=== PATIENT | male | born 1995 | race Caucasian/White ===

== ENCOUNTER 2017-09-15 21:14 | Emergency (ER) | payer OTHER, BC ==
[2017-09-15] MEDS: Albuterol-Ipratrop 3 mg / 0.5 (3 ml) UD IH SCH ×3 (21:25→21:55)
--- NOTE | 2017-09-15 21:28 | ED PDOC ---
Arrival/HPI - General Time Seen by Provider: 09/15/17 21:24 Historian: Patient - History of Present Illness Narrative History of Present Illness (Text): 09/15/17 21:26 21 y/o male, pmh including asthma, nkda, c/o coughing x 2 weeks. Pt. stated that he has been coughing for the past 2 weeks with nasal congestion, started wheezing for the past 3 days, no night sweat, no rash, no numbness or tingling , no pleuritic pain, no other medical or psychological complaints. Past Medical History - Provider Review Nursing Documentation Reviewed: Yes - Tetanus Immunization Tetanus Immunization: Unknown - Past Medical History Past Medical History: No Previous - Pulmonary Hx Asthma: Yes - Psychiatric Hx Substance Use: No - Past Surgical History Past Surgical History: No Previous - Suicidal Assessment Feels Threatened In Home Enviroment: No Family/Social History - Physician Review Nursing Documentation Reviewed: Yes Family/Social History: Unknown Family HX Smoking Status: n Hx Alcohol Use: No Hx Substance Use: No Hx Substance Use Treatment: No Allergies/Home Meds Allergies/Adverse Reactions: Allergies apples Allergy (Uncoded 09/15/17 21:17) RASH Review of Systems - Review of Systems Constitutional: absent: Fatigue, Fevers Eyes: absent: Vision Changes ENT: Rhinorrhea. absent: Hearing Changes Respiratory: Cough, Sputum, Wheezing. absent: SOB Cardiovascular: absent: Chest Pain Gastrointestinal: absent: Abdominal Pain, Nausea, Vomiting Musculoskeletal: absent: Arthralgias Skin: absent: Rash, Pruritis Neurological: absent: Headache Psychiatric: absent: Anxiety, Depression Physical Exam Vital Signs Reviewed: Yes Vital Signs Temp Pulse Resp BP Pulse Ox 09/16/17 00:59 98.9 F 99 H 18 129/86 95 09/15/17 22:45 113 H 16 132/68 96 09/15/17 21:23 99.5 F 105 H 24 118/62 94 L Temperature: Afebrile Blood Pressure: Normal Pulse: Tachycardic Respiratory Rate: Normal Appearance: Positive for: Well-Appearing, Non-Toxic, Comfortable Pain Distress: None Mental Status: Positive for: Alert and Oriented X 3 - Systems Exam Head: Present: Atraumatic, Normocephalic Pupils: Present: PERRL Extroacular Muscles: Present: EOMI Conjunctiva: Present: Normal Mouth: Present: Moist Mucous Membranes Neck: Present: Normal Range of Motion Respiratory/Chest: Present: Wheezes, Decreased Breath Sounds, Rhonchi, Tachypneic. No: Respiratory Distress, Accessory Muscle Use, Retracting, Tender to Palpation Cardiovascular: Present: Regular Rate and Rhythm, Normal S1, S2, Other (no pedal edema). No: Murmurs Abdomen: No: Tenderness, Distention, Peritoneal Signs Back: Present: Normal Inspection Upper Extremity: Present: Normal Inspection. No: Cyanosis, Edema Lower Extremity: Present: Normal Inspection. No: Edema Neurological: Present: GCS=15, CN II-XII Intact, Speech Normal Skin: Present: Warm, Dry, Normal Color. 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 feels much better and poorly skill on using peak flow so unable to performed. zithromax 500mg po ordered -Discharge home with zithromax, prednisone, albuterol, claritin, follow up with your own pmd and pulmonlogist within 2 days, return to the ER for any new or worsening signs or symptoms. - Lab Interpretations Lab Results: 09/15/17 21:42 09/15/17 21:42 Lab Results 09/15/17 21:42: WBC 11.7 H, RBC 4.95, Hgb 15.7, Hct 44.6, MCV 90.1, MCH 31.7, MCHC 35.2, RDW 13.0, Plt Count 249, MPV 9.5, Gran % 69.3 H, Lymph % (Auto) 12.0 L, [place] % (Auto) 13.5 H, Eos % (Auto) 4.6, Baso % (Auto) 0.6, Gran # 8.10 H, Lymph # (Auto) 1.4, [place] # (Auto) 1.6 H, Eos # (Auto) 0.5, Baso # (Auto) 0.07 09/15/17 21:42: Sodium 143, Potassium 3.9, Chloride 105, Carbon Dioxide 25, Anion Gap 17, BUN 15, Creatinine 1.0, Est GFR ( Amer) > 60, Est GFR (Non- Af Amer) > 60, Random Glucose 112 H, Calcium 9.3, Magnesium 1.9, Total Bilirubin 0.5, AST 32, ALT 34, Alkaline Phosphatase 65, Total Protein 7.4, Albumin 4.5, Globulin 3.0, Albumin/Globulin Ratio 1.5 - RAD Interpretation Radiology Orders: 09/15/17 21:25 CHEST PORTABLE [RAD] Stat no active disease Oven Unloader: Radiologist - Medication Orders Current Medication Orders: Discontinued Medications Albuterol/Ipratropium (Duoneb 3 Mg/0.5 Mg (3 Ml) Ud) 3 ml IH Q15M DIPIKA Stop: 09/15/17 22:01 Last Admin: 09/15/17 21:55 Dose: 3 ml Azithromycin (Zithromax) 500 mg PO STAT STA PRN Reason: Protocol Stop: 09/15/17 23:50 Last Admin: 09/15/17 23:58 Dose: 500 mg Sodium Chloride (Sodium Chloride 0.9%) 1,000 mls @ 250 mls/hr IV .Q4H [facility] Last Admin: 09/15/17 21:40 Dose: 250 mls/hr eMAR Start Stop Document 09/15/17 21:40 CNR (Rec: 09/15/17 21:41 CNR [id number]) Intravenous Solution Start Date 09/15/17 Start Time 21:41 Methylprednisolone (Solu-Medrol) 125 mg IVP STAT STA Stop: 09/15/17 21:26 Last Admin: 09/15/17 21:40 Dose: 125 mg IVP Administration Document 09/15/17 21:40 CNR (Rec: 09/15/17 21:40 CNR [id number]) Charges for Administration # of IVP Administrations 1 - PA / [facility] CONSULTANT / Resident Statement MD/DO has reviewed & agrees with the documentation as recorded. Disposition/Present on Arrival - Present on Arrival Any Indicators Present on Arrival: No History of DVT/PE: No History of Uncontrolled Diabetes: No Urinary Catheter: No History of Decub. Ulcer: No History Surgical Site Infection Following: None - Disposition Have Diagnosis and Disposition been Completed?: Yes Diagnosis: Bronchitis, Asthma exacerbation Disposition: HOME/ ROUTINE Disposition Time: 21:28 Patient Plan: Discharge Condition: IMPROVED Additional Instructions: -Discharge home with zithromax, prednisone, albuterol, claritin, tessalon, follow up with your own pmd and pulmonlogist within 2 days, return to the ER for any new or worsening signs or symptoms. Prescriptions: Albuterol HFA [Ventolin HFA 90 mcg/actuation (8 g)] 2 puff IH [id number] PRN #1 in PRN Reason: Other Azithromycin [Zithromax] 250 mg PO DAILY #4 tab Benzonatate [Tessalon Perles] 200 mg PO TID PRN #30 sgl PRN Reason: Other Loratadine [Claritin] 10 mg PO DAILY #10 tab Prednisone 50 mg PO DAILY #4 tablet Referrals: PCP,NO [Primary Care Provider] - Follow up with primary [facility] [place] [Outside] - Follow up with primary Rolan Ibrahim MD [Staff Provider] - Follow up with primary Forms: WORK NOTE
[2017-09-15] MEDS ORDERED: Sodium Chloride 0.9% 1,000 ML IV SCH (21:30)
[2017-09-15 21:39] VITALS: BMI 20.2
[2017-09-15 21:48] LABS: BASO # 0.07 K/mm3 (0.0-2.0); BASO % 0.6 % (0.0-3.0); EOS # 0.5 (0.0-0.7); EOS % 4.6 % (1.5-5.0); GRAN # 8.1 (1.4-6.5); GRAN % 69.3 % (50.0-68.0); HEMOGLOBIN 15.7 g/dL (14.0-18.0); LYMPH # 1.4 (1.2-3.4); MEAN CELL VOLUME 90.1 fl (80.0-105.0); MEAN CORPUSCULAR HEMOGLOBIN 31.7 pg (25.0-35.0); MEAN CORPUSCULAR HGB CONC 35.2 g/dl (31.0-37.0); MEAN PLATELET VOLUME 9.5 fl (7.0-11.0); MONO # 1.6 (0.1-0.6); MONO % 13.5 % (1.0-6.0); RBC 4.95 10^6/uL (3.5-6.1); WHITE BLOOD COUNT 11.7 10^3/ul (4.5-11.0)
[2017-09-15 21:59] LABS: ALB/GLOB RATIO 1.5 (1.1-1.8); ALBUMIN 4.5 g/dL (3.0-4.8); ALT/SGPT 34 U/L (7-56); AST/SGOT 32 U/L (17-59); BLOOD UREA NITROGEN 15 mg/dL (7-21); CALCIUM 9.3 mg/dL (8.4-10.5); GFR AFRICAN-AMERICAN > 60; GFR NON-AFRICAN AMERICAN > 60
[2017-09-16 01:00] VITALS: BP 129/86; PULSE 99; RESP 18; TEMP 98.9; O2SAT 95
--- NOTE | 2017-09-16 08:20 | RAD ---
HISTORY: cough x 2 weeks COMPARISON: No prior. FINDINGS: LUNGS: No active pulmonary disease. PLEURA: No significant pleural effusion identified, no pneumothorax apparent. CARDIOVASCULAR: Normal. OSSEOUS STRUCTURES: No significant abnormalities. VISUALIZED UPPER ABDOMEN: Normal. OTHER FINDINGS: None. IMPRESSION: No active disease.
== END 2017-09-16 00:59 | disposition home or self-care (01) ==
LOC: ED 21:14
DX: J45.901 Unspecified asthma with (acute) exacerbation (principal)
CPT/HCPCS: 71045; 80053; 83735; 85025; 96374; 99284; J2930; J7040

== ENCOUNTER 2018-04-09 09:06 | Observation (INO) | payer SELFPAY ==
--- NOTE | 2018-04-09 09:27 | ED PDOC ---
Arrival/HPI - General Chief Complaint: Shortness Of Breath Time Seen by Provider: 04/09/18 09:17 Historian: Patient - History of Present Illness Narrative History of Present Illness (Text): 04/09/18 09:20 22 m with pmhx of asthma presents to the ED with shortness of breath since one week ago. Patient states experiencing associated fever, night sweats, productive coughing, and a sore throat. Patient reports symptoms became progressively worse throughout the last week and woke up today wheezing. Patient states he had one albuterol treatment and used his pump at home to no relief. Patient notes these symptoms do not feel like a normal or previous asthma problem. Patient denies any pain upon swallowing, nausea, vomiting or any other complaints. No PMD Time/Duration: 1 week Symptom Onset: Gradual Symptom Course: Unchanged Activities at Onset: Light Context: Home Past Medical History - Provider Review Nursing Documentation Reviewed: Yes - Tetanus Immunization Tetanus Immunization: Unknown - Past Medical History Past Medical History: No Previous - Pulmonary Hx Asthma: Yes - Psychiatric Hx Substance Use: No - Past Surgical History Past Surgical History: No Previous - Suicidal Assessment Feels Threatened In Home Enviroment: No Family/Social History - Physician Review Nursing Documentation Reviewed: Yes Family/Social History: No Known Family HX Smoking Status: Light Smoker < 10 Cigarettes Daily Hx Alcohol Use: No Hx Substance Use: No Hx Substance Use Treatment: No Allergies/Home Meds Allergies/Adverse Reactions: Allergies apples Allergy (Uncoded 04/09/18 09:09) RASH Review of Systems - Physician Review All systems were reviewed & negative as marked: Yes - Review of Systems Constitutional: Fevers, Night Sweats ENT: Sore Throat. absent: Other (no pain upon swallowing) Respiratory: Cough (+productive coughing), Wheezing Gastrointestinal: absent: Nausea, Vomiting Physical Exam - Physical Exam Narrative Physical Exam (Text): 04/09/18 09:27 Gen: VS reviewed, alert, well developed, well nourished, nontoxic, mild distress. ENT: normal pharynx. Eye: EOMI, PERRL. Neck: no JVD, supple, no adenopathy. CV: rapid rate, regular rhythm, no rubs, no murmur, no gallops, S1, S2, pulses equal and strong. Pulm: Tachypneic, clear to auscultation, no wheeze, no rhonchi, breath sounds equal, no rales. Abd: soft, nontender, no guarding, no rebound, no rigidity, normal bowel sounds. Ext: no edema. Skin: good color, no rash, no cyanosis. Psych: responds appropriately to questions, normal affect. Neuro: oriented x 3, CN2-12 intact grossly, motor intact, sensation intact. Vital Signs Temp Pulse Resp BP Pulse Ox 04/09/18 09:18 22 93 L 04/09/18 09:07 98.7 F 102 H 18 136/74 96 Temperature: Afebrile Blood Pressure: Normal Pulse: Tachycardic Respiratory Rate: Normal Appearance: Positive for: Well-Appearing, Non-Toxic Mental Status: Positive for: Alert and Oriented X 3 Medical Decision Making ED Course and Treatment: 04/09/18 09:25 04/09/18 11:[address] ruiz to the hospitalist service. patient to be admitted for iv abx tx pneumonia. despite a zero curb 65 score, clinically the patient appears somewhat toxic, still tachycardic and may be at high risk for unforeseen decompensation, especially with hx of asthma - RAD Interpretation Narrative RAD Interpretations (Text): 04/09/18 10:45 Procedure: Chest X-ray Dictator: Lexi Arroyo Impression: Patchy nodular left lower lobe infiltrate appears consistent pneumonia. Findings discussed with Dr. Blevins on 04/09/18 at 10:33 a.m. Radiology Orders: 04/09/18 09:21 CXR [CHEST TWO VIEWS (PA/LAT)] [RAD] Stat Boiler Operator: Radiologist - EKG Interpretation EKG Interpretation (Text): 04/09/18 09:52 09:13 sinus tachycardia at 102 bpm, nml qrs, nml axis, no acute sttw abn Interpreted by ED Physician: Yes - Scribe Statement The provider has reviewed the documentation as recorded by the Osiel Lance All medical record entries made by the Scribe were at my direction and personally dictated by me. I have reviewed the chart and agree that the record accurately reflects my personal performance of the history, physical exam, medical decision making, and the department course for this patient. I have also personally directed, reviewed, and agree with the discharge instructions and disposition. Disposition/Present on Arrival - Present on Arrival Any Indicators Present on Arrival: No History of DVT/PE: No History of Uncontrolled Diabetes: No Urinary Catheter: No History of Decub. Ulcer: No History Surgical Site Infection Following: None - Disposition Have Diagnosis and Disposition been Completed?: Yes Diagnosis: Pneumonia Disposition: HOSPITALIZED Disposition Time: 11:12 Patient Plan: Admission Condition: STABLE Referrals: PCP,NO [Primary Care Provider] - Follow up with primary Forms: [employer] (Italian)
[2018-04-09 10:00] LABS: BLOOD UREA NITROGEN 13 mg/dL (7-21); CALCIUM 9.2 mg/dL (8.4-10.5); GFR NON-AFRICAN AMERICAN > 60
[2018-04-09 10:26] LABS: BASO # 0.15 K/mm3 (0.0-2.0); EOS # 0.6 (0.0-0.7); GRAN # 11.14 (1.4-6.5); GRAN % 71.4 % (50.0-68.0); HEMOGLOBIN 16.3 g/dL (14.0-18.0); LYMPH # 1.6 (1.2-3.4); LYMPH % 10.1 % (22.0-35.0); MEAN CELL VOLUME 94.9 fl (80.0-105.0); MEAN CORPUSCULAR HEMOGLOBIN 36.4 pg (25.0-35.0); MEAN CORPUSCULAR HGB CONC 38.4 g/dl (31.0-37.0); MONO # 2.1 (0.1-0.6); MONO % 13.5 % (1.0-6.0); RBC 4.48 10^6/uL (3.5-6.1); RED CELL DISTRIBUTION WIDTH 14.7 % (11.5-14.5); WHITE BLOOD COUNT 15.6 10^3/uL (4.5-11.0)
--- NOTE | 2018-04-09 10:37 | RAD ---
HISTORY: cough, pneumonia COMPARISON: Chest x-ray performed 09/15/17 TECHNIQUE: Chest PA and lateral FINDINGS: LUNGS: Patchy nodular left lower lobe infiltrate appears consistent pneumonia. Please note that chest x-ray has limited sensitivity for the detection of pulmonary masses. PLEURA: No significant pleural effusion identified. No definite pneumothorax . CARDIOVASCULAR: Heart size appears within normal limits. No atherosclerotic calcification present. OSSEOUS STRUCTURES: No acute osseous abnormality identified. VISUALIZED UPPER ABDOMEN: Unremarkable. OTHER FINDINGS: None. IMPRESSION: Patchy nodular left lower lobe infiltrate appears consistent pneumonia. Findings discussed with Dr. Blevins on 04/09/18 at 10:33 a.m.
[2018-04-09] MEDS ORDERED: cefTRIAXone 1 gm 1 GM/100 ML BAG IVPB STA (10:54)
[2018-04-09] MEDS ORDERED: Azithromycin 500MG/NS 250ml 500 MG/250 ML BAG IVPB STA (10:54)
[2018-04-09] MEDS ORDERED: Sodium Chloride 0.9% 1,000 ML IV STA (11:12)
[2018-04-09] MEDS ORDERED: Sod Polystyrene Sulf 15 gm/60 ml Susp PO STA (11:14)
[2018-04-09 11:28] LABS: VENOUS BLOOD GAS BASE EXCESS 0.1 mmol/L (0.0-2.0); VENOUS BLOOD GAS PO2 48 mm/Hg (30-55); VENOUS BLOOD PH 7.44 (7.32-7.43)
[2018-04-09] MEDS ORDERED: Albuterol-Ipratrop 3 mg / 0.5 (3 ml) UD IH PRN (12:14)
[2018-04-09 13:20] VITALS: BMI 20.9
[2018-04-09] MEDS ORDERED: Influenza Vaccine 60 mcg/0.5 mL SYR (4YR UP) IM ONE (13:20)
[2018-04-09] MEDS ORDERED: Pneumococcal 23-Valent Vaccine IM ONE (13:20)
[2018-04-09] MEDS: Albuterol-Ipratrop 3 mg / 0.5 (3 ml) UD IH SCH ×2 (13:30→19:21)
[2018-04-09] MEDS: Enoxaparin 40 mg Syringe SC SCH (14:21)
--- NOTE | 2018-04-09 15:17 | CARD ---
APPROVED REPORT Date of service: 04/09/2018 EKG Measurement Heart [id number] <Conclusion> Sinus tachycardia Otherwise normal ECG
--- NOTE | 2018-04-09 15:40 | CP.PCM.HP ---
<Abhishek Frankel - Last Filed: 04/09/18 15:50> History of Present Illness - History of Present Illness History of Present Illness: H&P for Hospitalist service Abhishek Frankel PGY2 Chief complaint: cough and congestion Patient is a 22 M with a past medical history of asthma (never intubated) who presents with complaints of cough and congestion which began one week before. Patient states he was recently exposed to his brother who was diagnosed with pneumonia two weeks prior. States he noticed he was having fevers and chills along with cough so he decided to take his brother's remaining augmentin which he had been taken BID for the past 3 days. With no resolving of symptoms patient decided to come to the ED. Denies chest pain, vomiting, diarrhea, abdominal pain, dizziness, headache. PMD: Dr. Samuel PMHx: Asthma Social Hx: Marijuana use, occasional alcohol Allergies: denies seasonal/drug/food allergies Family Hx: Asthma (mother) Present on Admission - Present on Admission Any Indicators Present on Admission: No Review of Systems - Constitutional Constitutional: Chills, Fever. absent: Headache - EENT Eyes: absent: Change in Vision - Cardiovascular Cardiovascular: Dyspnea. absent: Chest Pain - Respiratory Respiratory: Cough, Dyspnea, Chest Congestion - Gastrointestinal Gastrointestinal: Diarrhea, Nausea, Vomiting - Musculoskeletal Musculoskeletal: absent: Back Pain - Neurological Neurological: absent: Dizziness - Psychiatric Psychiatric: absent: Anxiety Past Patient History - Tetanus Immunizations Tetanus Immunization: Unknown - Past Social History Smoking Status: pot/no cig - CARDIAC Hx Cardiac Disorders: No - PULMONARY Hx Respiratory Disorders: Yes Hx Asthma: Yes (has home nebulizer machine) - NEUROLOGICAL Hx Neurological Disorder: No - HEENT Hx HEENT Problems: Yes (wears contact lenses) - RENAL Hx Chronic Kidney Disease: No - ENDOCRINE/METABOLIC Hx Endocrine Disorders: Yes Other/Comment: "almost pre diabetes" when checked 2 yrs ago - HEMATOLOGICAL/ONCOLOGICAL Hx Blood Disorders: No - INTEGUMENTARY Hx Dermatological Problems: No - MUSCULOSKELETAL/RHEUMATOLOGICAL Hx Falls: Yes (sports related ) - GASTROINTESTINAL Hx Gastrointestinal Disorders: No - GENITOURINARY/GYNECOLOGICAL Hx Genitourinary Disorders: No - PSYCHIATRIC Hx Substance Use: Yes (2/3 joints daily marijuana/no cigs) - SURGICAL HISTORY Hx Surgeries: No Meds Allergies/Adverse Reactions: Allergies Allergy/AdvReac Type Severity Reaction Status Date / Time apples Allergy RASH Uncoded 04/09/18 09:09 Physical Exam - Constitutional Appears: Non-toxic - Head Exam Head Exam: ATRAUMATIC, NORMAL INSPECTION, NORMOCEPHALIC - Eye Exam Eye Exam: EOMI, Normal appearance - ENT Exam ENT Exam: Mucous Membranes Moist, Normal Exam - Neck Exam Neck exam: Positive for: Normal Inspection - Respiratory Exam Respiratory Exam: Wheezes (upper lobes bilaterally), NORMAL BREATHING PATTERN. absent: Clear to Auscultation Bilateral, Rhonchi - Cardiovascular Exam Cardiovascular Exam: REGULAR RHYTHM, +S1, +S2 - GI/Abdominal Exam GI & Abdominal Exam: Normal Bowel Sounds, Soft - Extremities Exam Extremities exam: Positive for: normal inspection - Back Exam Back exam: NORMAL INSPECTION - Neurological Exam Neurological exam: Alert, CN II-XII Intact, Oriented x3 - Psychiatric Exam Psychiatric exam: Normal Affect, Normal Mood - Skin Skin Exam: Dry, Normal Color, Warm Results - Vital Signs Recent Vital Signs: Last Vital Signs Temp 98.7 F 04/09/18 10:42 Pulse 103 H 04/09/18 13:06 Resp 18 04/09/18 13:06 BP 127/66 04/09/18 10:42 Pulse Ox 97 04/09/18 12:04 - Labs Result Diagrams: 04/09/18 09:30 04/09/18 09:30 Labs: Laboratory Results - last 24 hr 04/09/18 04/09/18 04/09/18 09:30 09:30 09:30 WBC 15.6 H RBC 4.48 Hgb 16.3 Hct 42.5 MCV 94.9 D MCH 36.4 H MCHC 38.4 H RDW 14.7 H Plt Count 221 MPV 11.0 Gran % 71.4 H Lymph % (Auto) 10.1 L [place] % (Auto) 13.5 H Eos % (Auto) 4.0 Baso % (Auto) 1.0 Gran # 11.14 H Lymph # (Auto) 1.6 [place] # (Auto) 2.1 H Eos # (Auto) 0.6 Baso # (Auto) 0.15 pO2 VBG pH VBG pCO2 VBG HCO3 VBG Total CO2 VBG O2 Sat (Calc) VBG Base Excess VBG Potassium Glucose Lactate FiO2 Sodium 138 Potassium 5.5 H Chloride 104 Carbon Dioxide 24 Anion Gap 16 BUN 13 Creatinine 0.9 Est GFR ( Amer) > 60 Est GFR (Non-Af Amer) > 60 Random Glucose 109 Calcium 9.2 Venous Blood Potassium Influenza Typ A,B (EIA) Negative for flu a/b 04/09/18 11:10 WBC RBC Hgb Hct MCV MCH MCHC RDW Plt Count MPV Gran % Lymph % (Auto) [place] % (Auto) Eos % (Auto) Baso % (Auto) Gran # Lymph # (Auto) [place] # (Auto) Eos # (Auto) Baso # (Auto) pO2 48 VBG pH 7.44 H VBG pCO2 35.0 L VBG HCO3 23.8 VBG Total CO2 24.9 VBG O2 Sat (Calc) 86.8 H VBG Base Excess 0.1 VBG Potassium 5.4 H Glucose 101 Lactate 1.3 FiO2 21.0 Sodium 136.0 Potassium Chloride 103.0 Carbon Dioxide Anion Gap BUN Creatinine Est GFR ( Amer) Est GFR (Non-Af Amer) Random Glucose Calcium Venous Blood Potassium 5.4 H Influenza Typ A,B (EIA) Assessment & Plan - Assessment and Plan (Free Text) Assessment: Patient is a 22 M with a past medical history of asthma (never intubated) who presents with complaints of cough and congestion presenting with pneumonia vs bronchitis picture. Plan: Pneumonia vs Acute Bronchitis -Continue rocephin and azithromax -Procalcitonin ordered -Sputum and blood cultures ordered -Solumedrol, claritin Asthma Hx -Duonebs Scheduled and PRN DVT/GI ppx: Lovenox/Protonix Case discussed and reviewed with Dr. Echols <Rolan Echols - Last Filed: 04/10/18 13:24> Results - Vital Signs Recent Vital Signs: Last Vital Signs Temp 98.1 F 04/10/18 07:00 Pulse 76 04/10/18 07:00 Resp 20 04/10/18 07:00 BP 122/66 04/10/18 07:00 Pulse Ox 96 04/10/18 07:00 - Labs Result Diagrams: 04/09/18 09:30 04/10/18 06:30 Labs: Laboratory Results - last 24 hr 04/09/18 04/09/18 04/10/18 12:30 16:31 06:30 Sodium 139 140 Potassium 3.8 3.9 Chloride 106 108 H Carbon Dioxide 25 23 Anion Gap 11 13 BUN 11 18 Creatinine 0.8 0.7 L Est GFR ( Amer) > 60 > 60 Est GFR (Non-Af Amer) > 60 > 60 Random Glucose 104 159 H Calcium 8.5 9.3 Total Bilirubin 0.8 AST 25 ALT 24 Alkaline Phosphatase 81 Total Protein 7.4 Albumin 3.8 Globulin 3.6 Albumin/Globulin Ratio 1.1 Procalcitonin 0.10 L Attending/Attestation - Attestation I have personally seen and examined this patient.: Yes I have fully participated in the care of the patient.: Yes I have reviewed all pertinent clinical information: Yes Notes (Text): 04/10/18 13:23 Medical record note made by the resident after discussion with my direction and input after the patient was personally seen and examined by me. I have reviewed the chart and agree that the record accurately reflects by personal performance of the history, physical exam, data review, and medical decision-making, in the course for the patient. I have also personally directed the plan of care.
[2018-04-09 17:04] LABS: BLOOD UREA NITROGEN 11 mg/dL (7-21); CALCIUM 8.5 mg/dL (8.4-10.5); GFR NON-AFRICAN AMERICAN > 60
[2018-04-10] MEDS: Albuterol-Ipratrop 3 mg / 0.5 (3 ml) UD IH SCH ×3 (01:03→13:53)
[2018-04-10] MEDS ORDERED: Pantoprazole 40 mg EC Tab PO SCH (06:00)
[2018-04-10 06:12] VITALS: BP 122/66; PULSE 76; TEMP 98.1; O2SAT 96
[2018-04-10 08:01] VITALS: RESP 20
[2018-04-10] MEDS: Enoxaparin 40 mg Syringe SC SCH (09:56)
[2018-04-10] MEDS ORDERED: Azithromycin 500MG/NS 250ml 500 MG/250 ML BAG IVPB SCH (10:00)
[2018-04-10] MEDS ORDERED: cefTRIAXone 1 gm 1 GM/100 ML BAG IVPB SCH (10:00)
[2018-04-10] MEDS ORDERED: MethylPREDNISolone 40 mg Vial IVP SCH (10:00)
[2018-04-10 10:13] LABS: BLOOD UREA NITROGEN 18 mg/dL (7-21)
[2018-04-10 10:14] LABS: ALB/GLOB RATIO 1.1 (1.1-1.8); ALBUMIN 3.8 g/dL (3.0-4.8); CALCIUM 9.3 mg/dL (8.4-10.5); GFR NON-AFRICAN AMERICAN > 60
[2018-04-10 10:15] LABS: ALT/SGPT 24 U/L (7-56); AST/SGOT 25 U/L (17-59)
[2018-04-10 11:56] LABS: BASO # 0.04 K/mm3 (0.0-2.0); BASO % 0.3 % (0.0-3.0); EOS % 0.1 % (1.5-5.0); GRAN # 11.73 (1.4-6.5); LYMPH # 1.5 (1.2-3.4); LYMPH % 10.7 % (22.0-35.0); MEAN CELL VOLUME 96.6 fl (80.0-105.0); MEAN CORPUSCULAR HEMOGLOBIN 31.6 pg (25.0-35.0); MEAN CORPUSCULAR HGB CONC 32.7 g/dl (31.0-37.0); MEAN PLATELET VOLUME 11.3 fl (7.0-11.0); MONO # 0.4 (0.1-0.6); MONO % 2.9 % (1.0-6.0); RBC 4.11 10^6/uL (3.5-6.1); RED CELL DISTRIBUTION WIDTH 13.7 % (11.5-14.5); WHITE BLOOD COUNT 13.6 10^3/uL (4.5-11.0)
--- NOTE | 2018-04-10 15:01 | CP.PCM.DIS ---
<Abhishek Frankel - Last Filed: 04/10/18 15:37> Provider - Provider Date of Admission: 04/09/18 11:16 Attending physician: Rolan Echols MD Primary care physician: NO PRIMARY CARE PROVIDER Consults: 04/09/18 13:20 Inpatient SENIOR DRAFTER Core Measures Referral Routine Comment: pneumonia Physician Instructions: Reason For Exam: eval Transition In Care/Readmission Reduction Routine Comment: pneumonia Physician Instructions: Reason For Exam: eval Time Spent in preparation of Discharge (in minutes): 40 Diagnosis - Discharge Diagnosis (1) Acute bronchitis Status: Acute Priority: Low (2) Asthma Status: Chronic Priority: Low Hospital Course - Lab Results Lab Results: Micro Results 04/09/18 11:25 Blood-Venous Blood Culture - Preliminary NO GROWTH AFTER 24 HOURS 04/09/18 11:10 Blood-Venous Blood Culture - Preliminary NO GROWTH AFTER 24 HOURS Most Recent Lab Values WBC 13.6 10^3/uL (4.5-11.0) H 04/10/18 06:30 RBC 4.11 10^6/uL (3.5-6.1) 04/10/18 06:30 Hgb 13.0 g/dL (14.0-18.0) L D 04/10/18 06:30 Hct 39.7 % (42.0-52.0) L 04/10/18 06:30 MCV 96.6 fl (80.0-105.0) 04/10/18 06:30 MCH 31.6 pg (25.0-35.0) 04/10/18 06:30 MCHC 32.7 g/dl (31.0-37.0) 04/10/18 06:30 RDW 13.7 % (11.5-14.5) 04/10/18 06:30 Plt Count 262 10^3/uL (120.0-450.0) 04/10/18 06:30 MPV 11.3 fl (7.0-11.0) H 04/10/18 06:30 Gran % 86.0 % (50.0-68.0) H 04/10/18 06:30 Lymph % (Auto) 10.7 % (22.0-35.0) L 04/10/18 06:30 [place] % (Auto) 2.9 % (1.0-6.0) 04/10/18 06:30 Eos % (Auto) 0.1 % (1.5-5.0) L 04/10/18 06:30 Baso % (Auto) 0.3 % (0.0-3.0) 04/10/18 06:30 Gran # 11.73 (1.4-6.5) H 04/10/18 06:30 Lymph # (Auto) 1.5 (1.2-3.4) 04/10/18 06:30 [place] # (Auto) 0.4 (0.1-0.6) 04/10/18 06:30 Eos # (Auto) 0.0 (0.0-0.7) 04/10/18 06:30 Baso # (Auto) 0.04 K/mm3 (0.0-2.0) 04/10/18 06:30 pO2 48 mm/Hg (30-55) 04/09/18 11:10 VBG pH 7.44 (7.32-7.43) H 04/09/18 11:10 VBG pCO2 35.0 (40-60) L 04/09/18 11:10 VBG HCO3 23.8 mmol/l (21-28) 04/09/18 11:10 VBG Total CO2 24.9 mmol.L (22-28) 04/09/18 11:10 VBG O2 Sat (Calc) 86.8 % (40-65) H 04/09/18 11:10 VBG Base Excess 0.1 mmol/L (0.0-2.0) 04/09/18 11:10 VBG Potassium 5.4 mmol/L (3.6-5.2) H 04/09/18 11:10 Sodium 136.0 mmol/L (132-148) 04/09/18 11:10 Chloride 103.0 mmol/L (98-107) 04/09/18 11:10 Glucose 101 mg/dl (75-110) 04/09/18 11:10 Lactate 1.3 mmol/L (0.7-2.1) 04/09/18 11:10 FiO2 21.0 % 04/09/18 11:10 Sodium 140 mmol/L (132-148) 04/10/18 06:30 Potassium 3.9 mmol/L (3.6-5.0) 04/10/18 06:30 Chloride 108 mmol/L (98-107) H 04/10/18 06:30 Carbon Dioxide 23 mmol/L (21-33) 04/10/18 06:30 Anion Gap 13 (10-20) 04/10/18 06:30 BUN 18 mg/dL (7-21) 04/10/18 06:30 Creatinine 0.7 mg/dl (0.8-1.5) L 04/10/18 06:30 Est GFR ( Amer) > 60 04/10/18 06:30 Est GFR (Non-Af Amer) > 60 04/10/18 06:30 Random Glucose 159 mg/dL (70-110) H 04/10/18 06:30 Calcium 9.3 mg/dL (8.4-10.5) 04/10/18 06:30 Total Bilirubin 0.8 mg/dL (0.2-1.3) 04/10/18 06:30 AST 25 U/L (17-59) 04/10/18 06:30 ALT 24 U/L (7-56) 04/10/18 06:30 Alkaline Phosphatase 81 U/L (38-126) 04/10/18 06:30 Total Protein 7.4 g/dL (5.8-8.3) 04/10/18 06:30 Albumin 3.8 g/dL (3.0-4.8) 04/10/18 06:30 Globulin 3.6 gm/dL 04/10/18 06:30 Albumin/Globulin Ratio 1.1 (1.1-1.8) 04/10/18 06:30 Procalcitonin 0.10 NG/ML (0.19-0.49) L 04/09/18 12:30 Venous Blood Potassium 5.4 mmol/L (3.6-5.2) H 04/09/18 11:10 Influenza Typ A,B (EIA) Negative for flu a/b (NEGATIVE) 04/09/18 09:30 - Hospital Course Hospital Course: Patient is a 22 M with a past medical history of asthma (never intubated) who presents with complaints of cough and congestion which began one week before. Patient states he was recently exposed to his brother who was diagnosed with pneumonia two weeks prior. States he noticed he was having fevers and chills along with cough so he decided to take his brother's remaining augmentin which he had been taken BID for the past 3 days. With no resolving of symptoms patient decided to come to the ED. Patient was admitted to the hospital and started on rocephin and azithromax. Pneumonia marker procalcitonin was ordered and returned negative. Patient was seen and evaluated this morning stating he felt much better and was ready to go home. Patient denied fevers, chills, chest pain, vomiting, diarrhea, abdominal pain, dizziness, headache. On physical exam, patient's wheezing had greatly improved and was resolved. Patient was discharged with azithromax as well as medication to maximize his asthma management which included tapering prednisone and symbicort, and a work note. Patient will follow up with his PMD regarding this admission. Discharge Exam - Head Exam Head Exam: ATRAUMATIC, NORMAL INSPECTION, NORMOCEPHALIC - Eye Exam Eye Exam: EOMI, Normal appearance - ENT Exam ENT Exam: Mucous Membranes Moist - Respiratory Exam Respiratory Exam: Clear to PA & Lateral, UNREMARKABLE. absent: Wheezes - Cardiovascular Exam Cardiovascular Exam: REGULAR RHYTHM, +S1, +S2 - GI/Abdominal Exam GI & Abdominal Exam: Normal Bowel Sounds, Unremarkable - Neurological Exam Neurological exam: Alert, CN II-XII Intact, Oriented x3 - Psychiatric Exam Psychiatric exam: Normal Affect, Normal Mood - Skin Skin Exam: Intact, Normal Color, Warm Discharge Plan - Discharge Medications Prescriptions: Albuterol Sulfate [Ventolin Hfa] 1 puff IH Q6H PRN #1 ml PRN Reason: Shortness Of Breath RX: Azithromycin 250 mg PO DAILY #4 tablet Budesonide/Formoterol Fumarate [Symbicort] 1 aer IH BID #1 aer Guaifenesin [Mucinex] 600 mg PO Q6 #1 tab.er.12h RX: Prednisone [Deltasone] See Taper PO DAILY #8 tablet - Follow Up Plan Condition: STABLE Disposition: HOME/ ROUTINE Instructions: Asthma in Adults, Smoking: Not Just Harmful to Your Lungs and Heart, Community-Acquired Pneumonia in Adults Additional Instructions: 1.Please follow up with your PMD within 1 week. 2.Please fill and take prescriptions as directed. 3.If symptoms worsen or return please go to your nearest ED for evaluation. 4.Please refrain from smoking. Referrals: PCP,NO [Primary Care Provider] - <Rolan Echols - Last Filed: 04/11/18 16:40> Provider - Provider Date of Admission: 04/09/18 11:16 Attending physician: Rolan Echols MD Primary care physician: NO PRIMARY CARE PROVIDER Consults: 04/09/18 13:20 Inpatient SENIOR DRAFTER Core Measures Referral Routine Comment: pneumonia Physician Instructions: Reason For Exam: eval Transition In Care/Readmission Reduction Routine Comment: pneumonia Physician Instructions: Reason For Exam: eval Hospital Course - Lab Results Lab Results: Micro Results 04/09/18 11:25 Blood-Venous Blood Culture - Preliminary NO GROWTH AFTER 48 HOURS 04/09/18 11:10 Blood-Venous Blood Culture - Preliminary NO GROWTH AFTER 48 HOURS Most Recent Lab Values WBC 13.6 10^3/uL (4.5-11.0) H 04/10/18 06:30 RBC 4.11 10^6/uL (3.5-6.1) 04/10/18 06:30 Hgb 13.0 g/dL (14.0-18.0) L D 04/10/18 06:30 Hct 39.7 % (42.0-52.0) L 04/10/18 06:30 MCV 96.6 fl (80.0-105.0) 04/10/18 06:30 MCH 31.6 pg (25.0-35.0) 04/10/18 06:30 MCHC 32.7 g/dl (31.0-37.0) 04/10/18 06:30 RDW 13.7 % (11.5-14.5) 04/10/18 06:30 Plt Count 262 10^3/uL (120.0-450.0) 04/10/18 06:30 MPV 11.3 fl (7.0-11.0) H 04/10/18 06:30 Gran % 86.0 % (50.0-68.0) H 04/10/18 06:30 Lymph % (Auto) 10.7 % (22.0-35.0) L 04/10/18 06:30 [place] % (Auto) 2.9 % (1.0-6.0) 04/10/18 06:30 Eos % (Auto) 0.1 % (1.5-5.0) L 04/10/18 06:30 Baso % (Auto) 0.3 % (0.0-3.0) 04/10/18 06:30 Gran # 11.73 (1.4-6.5) H 04/10/18 06:30 Lymph # (Auto) 1.5 (1.2-3.4) 04/10/18 06:30 [place] # (Auto) 0.4 (0.1-0.6) 04/10/18 06:30 Eos # (Auto) 0.0 (0.0-0.7) 04/10/18 06:30 Baso # (Auto) 0.04 K/mm3 (0.0-2.0) 04/10/18 06:30 pO2 48 mm/Hg (30-55) 04/09/18 11:10 VBG pH 7.44 (7.32-7.43) H 04/09/18 11:10 VBG pCO2 35.0 (40-60) L 04/09/18 11:10 VBG HCO3 23.8 mmol/l (21-28) 04/09/18 11:10 VBG Total CO2 24.9 mmol.L (22-28) 04/09/18 11:10 VBG O2 Sat (Calc) 86.8 % (40-65) H 04/09/18 11:10 VBG Base Excess 0.1 mmol/L (0.0-2.0) 04/09/18 11:10 VBG Potassium 5.4 mmol/L (3.6-5.2) H 04/09/18 11:10 Sodium 136.0 mmol/L (132-148) 04/09/18 11:10 Chloride 103.0 mmol/L (98-107) 04/09/18 11:10 Glucose 101 mg/dl (75-110) 04/09/18 11:10 Lactate 1.3 mmol/L (0.7-2.1) 04/09/18 11:10 FiO2 21.0 % 04/09/18 11:10 Sodium 140 mmol/L (132-148) 04/10/18 06:30 Potassium 3.9 mmol/L (3.6-5.0) 04/10/18 06:30 Chloride 108 mmol/L (98-107) H 04/10/18 06:30 Carbon Dioxide 23 mmol/L (21-33) 04/10/18 06:30 Anion Gap 13 (10-20) 04/10/18 06:30 BUN 18 mg/dL (7-21) 04/10/18 06:30 Creatinine 0.7 mg/dl (0.8-1.5) L 04/10/18 06:30 Est GFR ( Amer) > 60 04/10/18 06:30 Est GFR (Non-Af Amer) > 60 04/10/18 06:30 Random Glucose 159 mg/dL (70-110) H 04/10/18 06:30 Calcium 9.3 mg/dL (8.4-10.5) 04/10/18 06:30 Total Bilirubin 0.8 mg/dL (0.2-1.3) 04/10/18 06:30 AST 25 U/L (17-59) 04/10/18 06:30 ALT 24 U/L (7-56) 04/10/18 06:30 Alkaline Phosphatase 81 U/L (38-126) 04/10/18 06:30 Total Protein 7.4 g/dL (5.8-8.3) 04/10/18 06:30 Albumin 3.8 g/dL (3.0-4.8) 04/10/18 06:30 Globulin 3.6 gm/dL 04/10/18 06:30 Albumin/Globulin Ratio 1.1 (1.1-1.8) 04/10/18 06:30 Procalcitonin 0.10 NG/ML (0.19-0.49) L 04/09/18 12:30 Venous Blood Potassium 5.4 mmol/L (3.6-5.2) H 04/09/18 11:10 Influenza Typ A,B (EIA) Negative for flu a/b (NEGATIVE) 04/09/18 09:30 Attending/Attestation - Attestation I have personally seen and examined this patient.: Yes I have fully participated in the care of the patient.: Yes I have reviewed all pertinent clinical information, including history, physical exam and plan: Yes Notes (Text): 04/11/18 16:37 Medical record note made by the resident after discussion with my direction and input after the patient was personally seen and examined by me. I have reviewed the chart and agree that the record accurately reflects by personal performance of the history, physical exam, data review, and medical decision-making, in the course for the patient. I have also personally directed the plan of care. 22 M with a past medical history of asthma was admitted with cough and dyspnea found to have Mild Asthma exacerbation triggered by upper Resp Tract infection . Procalcitonin level was normal. Patient has responded well.Cough and dyspnea has improved.He is on room air and is ambulatory. He will be discharged home on Albuterol inhaler, Symbicort inhaler,Azithromycin and tapering dose of Prednisone. Management plan was discussed in detail with patient. Education was provided.
[2018-04-10] MEDS ORDERED: Pneumococcal 23-Valent Vaccine IM ONE (15:26)
[2018-04-10] MEDS ORDERED: Influenza Vaccine 60 mcg/0.5 mL SYR (4YR UP) IM ONE (15:26)
== END 2018-04-10 17:27 | disposition home or self-care (01) ==
LOC: ED 09:06 → ERH 11:16 → INTOOBSV 11:16 → ERH 11:26 → 5RNO 12:21
PROVIDERS: ADMIT Internal Medicine; ATTEND Internal Medicine
DX: J20.9 Acute bronchitis, unspecified (principal); J45.901 Unspecified asthma with (acute) exacerbation; Z23 Encounter for immunization; F12.90 Cannabis use, unspecified, uncomplicated; Z82.5 Family history of asthma and other chronic lower respiratory diseases
CPT/HCPCS: 36415; 71046; 80048; 80053; 82803; 84145; 85025; 87040; 87804; 90674; 90732; 93005; 94640; 94760; 96365; 96367; 99285; G0008; G0009; G0378; J0456; J0696; J1650; J2920; J2930; J7030